=== PATIENT | female | born 1965 | race American Indian/Alaskan Native ===

== ENCOUNTER 2018-05-17 10:14 | Observation (INO) | payer MEDICAID ==
[2018-05-17 10:26] VITALS: BMI 57.6
[2018-05-17 11:18] LABS: BASO # 0.01 K/mm3 (0.0-2.0); BASO % 0.3 % (0.0-3.0); EOS # 0.1 (0.0-0.7); EOS % 1.3 % (1.5-5.0); GRAN # 2.05 (1.4-6.5); GRAN % 52.9 % (50.0-68.0); HEMOGLOBIN 14.7 g/dL (12.0-16.0); LYMPH # 1.4 (1.2-3.4); LYMPH % 36.2 % (22.0-35.0); MEAN CELL VOLUME 89.7 fl (80.0-105.0); MEAN CORPUSCULAR HEMOGLOBIN 29.2 pg (25.0-35.0); MEAN CORPUSCULAR HGB CONC 32.6 g/dl (31.0-37.0); MEAN PLATELET VOLUME 11.5 fl (7.0-11.0); MONO # 0.4 (0.1-0.6); MONO % 9.3 % (1.0-6.0); RBC 5.03 10^6/uL (3.5-6.1); RED CELL DISTRIBUTION WIDTH 13.8 % (11.5-14.5); WHITE BLOOD COUNT 3.9 10^3/uL (4.5-11.0)
[2018-05-17 11:45] LABS: URINE APPEARANCE CLEAR (CLEAR); URINE BILIRUBIN NEGATIVE (NEGATIVE); URINE BLOOD TRACE-INTACT (NEGATIVE); URINE COLOR LIGHT YELLOW (YELLOW); URINE GLUCOSE (UA) NEGATIVE (NEGATIVE); URINE LEUKOCYTE ESTERASE TRACE Leu/uL (NEGATIVE); URINE PROTEIN NEGATIVE mg/dL (<30 mg/dL); URINE UROBILINOGEN 0.2 E.U./dL (<1 E.U./dL)
[2018-05-17 11:52] LABS: URINE BACTERIA FEW (NEG); URINE RBC 0 - 2 /hpf (0-2); URINE WBC 0 - 2 /hpf (0-6)
--- NOTE | 2018-05-17 12:03 | ED PDOC ---
Arrival/HPI - General Chief Complaint: Chest Pain Time Seen by Provider: 05/17/18 10:27 Historian: Patient - History of Present Illness Narrative History of Present Illness (Text): 05/17/18 12:01 53-year-old female with a history of hypertension and morbid obesity presents today with a 2 day history of left-sided chest pain that is intermittent. Patient describes the chest pain as a sharp sensation that radiates to the left lateral aspect of the chest that now seems more like a pressure sensation. Patient states she's had some intermittent shortness of breath mostly when she is sitting up and leaning forward. Patient denies any shortness of breath at present time. Patient denies nausea vomiting diarrhea or constipation. Patient states she's been intermittently dizzy as well. She denies headaches. Patient denies any recent trauma or injury. Patient also is complaining of pain in the bilateral lower extremities. Past Medical History - Provider Review Nursing Documentation Reviewed: Yes - Travel History Have you recently traveled outside [place] w/in the past 3 mons?: No - Infectious Disease Hx of Infectious Diseases: None - Tetanus Immunization Tetanus Immunization: Unknown - Cardiac Hx Hypertension: Yes Hx Pacemaker: No - Pulmonary Hx Sleep Apnea: Yes - Neurological Hx Paralysis: No - HEENT Hx HEENT Disorder: Yes Hx Blind: Yes Hx Cataracts: Yes (Hx of bilateral lens implant: Right 08/2102 and Left 08/2013.) Hx Glaucoma: Yes - Renal Hx Renal Disorder: No - Endocrine/Metabolic Hx Endocrine Disorders: No - Hematological/Oncological Hx Blood Transfusions: No Hx Blood Transfusion Reaction: No - Integumentary Hx Dermatological Disorder: No - Musculoskeletal/Rheumatological Hx Musculoskeletal Disorders: Yes - Gastrointestinal Hx Gastrointestinal Disorders: No - Genitourinary/Gynecological Hx Genitourinary Disorders: No - Psychiatric Hx Emotional Abuse: No Hx Physical Abuse: No Hx Substance Use: No - Anesthesia Hx Anesthesia Reactions: No Hx Malignant Hyperthermia: No - Suicidal Assessment Feels Threatened In Home Enviroment: No Family/Social History - Physician Review Nursing Documentation Reviewed: Yes Family/Social History: Unknown Family HX Smoking Status: Never Smoked Hx Alcohol Use: No Hx Substance Use: No Hx Substance Use Treatment: No Allergies/Home Meds Allergies/Adverse Reactions: Allergies No Known Allergies Allergy (Verified 11/12/13 17:11) Home Medications: Home Meds Medication Instructions Recorded Confirmed Olmesartan/Hydrochlorothiazide 1 tab PO DAILY 11/12/13 03/14/16 [Benicar Hct 12.5 mg-20 mg] Combigan 1 drop EACHEYE [facility] 03/10/16 03/14/16 Ergocalciferol (Vitamin D2) 2,000 iu PO QOTHERDAY 03/10/16 03/14/16 [Vitamin D2] Latanoprost 1 drop EACHEYE 03/10/16 03/14/16 PrednisoLONE 1% [Prednisolone 1 drop EACHEYE [facility] 03/10/16 03/14/16 Acetate 5 Ml] amLODIPine [Norvasc] 10 mg PO DAILY 03/10/16 03/14/16 Review of Systems - Review of Systems Constitutional: absent: Fatigue, Fevers ENT: Sinus Congestion Respiratory: SOB (intermittent, not a present time). absent: Cough Cardiovascular: Chest Pain. absent: Palpitations, Syncope Gastrointestinal: absent: Abdominal Pain, Nausea, Vomiting Genitourinary Female: absent: Dysuria, Frequency, Hematuria Musculoskeletal: absent: Arthralgias, Back Pain, Neck Pain Skin: absent: Rash, Pruritis Neurological: Dizziness. absent: Headache Psychiatric: absent: Anxiety, Depression Physical Exam Vital Signs Reviewed: Yes Vital Signs Temp Pulse Resp BP Pulse Ox 05/17/18 11:49 64 18 130/74 100 05/17/18 10:14 98.5 F 65 18 142/71 99 Temperature: Afebrile Blood Pressure: Normal Pulse: Regular Respiratory Rate: Normal Appearance: Positive for: Well-Appearing, Non-Toxic, Comfortable Pain Distress: None Mental Status: Positive for: Alert and Oriented X 3 - Systems Exam Head: Present: Atraumatic Mouth: Present: Moist Mucous Membranes Neck: Present: Normal Range of Motion Respiratory/Chest: Present: Clear to Auscultation, Good Air Exchange. No: Respiratory Distress, Accessory Muscle Use, Wheezes, Retracting, Rhonchi, Tachypneic Cardiovascular: Present: Regular Rate and Rhythm, Normal S1, S2. No: Murmurs, Tachycardic Abdomen: No: Tenderness, Distention, Rebound, Guarding Back: Present: Normal Inspection Upper Extremity: Present: Normal ROM Lower Extremity: Present: Normal Inspection, Normal ROM. No: Erythema Neurological: Present: GCS=15, Speech Normal Skin: Present: Warm, Dry, Normal Color. No: Rashes Psychiatric: Present: Alert, Oriented x 3 Medical Decision Making ED Course and Treatment: 05/17/18 12:04 pt with chest pain and occasional dizziness x 2 days. vitals stable cbc; wnl cmp; wnl trop: wnl ekg; normal sinus rhythm at 65 bpm normal axis no ST elevations QTC 428 cxr: wnl venous duplex b/l legs; no dvt verbal report from US tech. asa po 40meq potassium PO pt reassessment; pt non toxic well appearing; no distress. stable vitals. case discussed with Dr. Ascencio will Admit observational status to Tele for chest pain r/o acs. impression; chest pain Admit observational status to tele; Dr. Ascencio - Lab Interpretations Lab Results: 05/17/18 11:00 Lab Results 05/17/18 11:40: Urine Color Light yellow, Urine Appearance Clear, Urine pH 7.0, Ur Specific [place] 1.015, Urine Protein Negative, Urine Glucose (UA) Negative, Urine Ketones Negative, Urine Blood Trace-intact H, Urine Nitrate Negative, Urine Bilirubin Negative, Urine Urobilinogen 0.2, Ur Leukocyte Esterase Trace H, Urine RBC 0 - 2, Urine WBC 0 - 2, Ur Epithelial Cells 4 - 5, Urine Bacteria Few 05/17/18 11:00: WBC 3.9 L, RBC 5.03, Hgb 14.7, Hct 45.1, MCV 89.7, MCH 29.2, MCHC 32.6, RDW 13.8, Plt Count 202, MPV 11.5 H, Gran % 52.9, Lymph % (Auto) 36.2 H, [place] % (Auto) 9.3 H, Eos % (Auto) 1.3 L, Baso % (Auto) 0.3, Gran # 2.05, Lymph # (Auto) 1.4, [place] # (Auto) 0.4, Eos # (Auto) 0.1, Baso # (Auto) 0.01 - RAD Interpretation Radiology Orders: 05/17/18 10:55 CHEST PORTABLE [RAD] Stat 05/17/18 11:21 DUPLEX LOWER EXTRM VEIN BILAT [US] Stat Disposition/Present on Arrival - Present on Arrival Any Indicators Present on Arrival: No History of DVT/PE: No History of Uncontrolled Diabetes: No Urinary Catheter: No History of Decub. Ulcer: No History Surgical Site Infection Following: None - Disposition Have Diagnosis and Disposition been Completed?: Yes Diagnosis: Chest pain Disposition: HOSPITALIZED Disposition Time: 13:00 Patient Plan: Observation Condition: FAIR Discharge Instructions (ExitCare): Chest Pain (ED) Referrals: Mya Anderson DO [Primary Care Provider] - Follow up with primary Forms: Leroy Brothers (Irish)
--- NOTE | 2018-05-17 12:38 | RAD ---
Date of service: 05/17/2018 HISTORY: chest pain COMPARISON: 11/12/2013 FINDINGS: LUNGS: No active pulmonary disease. PLEURA: No significant pleural effusion identified, no pneumothorax apparent. CARDIOVASCULAR: No aortic atherosclerotic calcification present. Mild cardiomegaly no pulmonary vascular congestion. OSSEOUS STRUCTURES: No significant abnormalities. VISUALIZED UPPER ABDOMEN: Normal. OTHER FINDINGS: None. IMPRESSION: No active disease.
--- NOTE | 2018-05-17 13:02 | US ---
HISTORY: Leg pain and swelling. Evaluate for DVT PHYSICIAN(S): Pato Lu MD. TECHNIQUE: Duplex sonography and color-flow Doppler with graded compression were used to evaluate the deep venous systems of both lower extremities. FINDINGS: The visualized deep venous systems of both lower extremities are sonographically normal and compressible. Normal wave forms and augmentation are seen. There is no sonographic evidence for deep venous thrombosis in the visualized segments of both lower extremities. IMPRESSION: No sonographic evidence for deep venous thrombosis in the visualized segments of both lower extremities.
[2018-05-17 13:11] LABS: ALB/GLOB RATIO 1.3 (1.1-1.8); ALBUMIN 4.2 g/dL (3.0-4.8); ALT/SGPT 38 U/L (7-56); AST/SGOT 24 U/L (14-36); BLOOD UREA NITROGEN 17 mg/dL (7-21); CALCIUM 9.4 mg/dL (8.4-10.5); GFR NON-AFRICAN AMERICAN 58
[2018-05-17] MEDS ORDERED: Potassium Chloride 20 mEq ER Tab PO STA (13:17)
[2018-05-17 13:22] LABS: TROPONIN I < 0.01 ng/mL
--- NOTE | 2018-05-17 15:24 | CP.PCM.HP ---
<Maggy Olivera - Last Filed: 05/17/18 18:03> History of Present Illness - History of Present Illness History of Present Illness: Resident History & Physical for Hospitalist Service Patient is a 53 yo female with past medical history of hypertension, obstructive sleep apnea, osteoarthritis, glaucoma, morbid obesity presenting with chief complaint of chest pain that began two days prior. She states that she first became diaphoretic, and then started having chest pain located in mid sternum which radiated into left jaw and down her left arm. The pain fluctuates between a sharp and pressure like sensation. She rates the severity 8/10. She denies any alleviating or aggravating factors. She took Janice- [place] without any remission of pain. She also admits to dizziness, which is brought on by positional changes such as sitting or standing up. Patient has followed up with a trade promotion analyst in the past Dr. Coates ([place], ). However she states that she has not followed up with him in several years. She denies associated fevers, chills, fatigue, cough, abdominal pain, nausea, vomiting, diarrhea, constipation. Currently in the ED the patient rates the pain as a 6/10. PMH: Hypertension, obstructive sleep apnea, osteoarthritis, glaucoma, morbid obesity PSH: Corneal transplant Social Hx: Denies alcohol, drug, tobacco use. Lives with her teenage son. She is legally blind and has home health aide Allergies: NKDA FHx: Mother (HTN), Father (HTN) Home meds: Amlodipine 5 mg daily, Aspirin 81 mg daily, Trazodone 150 mg nighttime, Ibuprofen 800 mg q8hrs prn, Valsartan HCTZ 80-12.5 mg daily, Oyster shell 500 Vitamin D 200 BID. Brimonidine 0.2% ophthalmic solution, Latanoprost .005% ophthalmic solution, Prednisolone 1% ophthalmic solution, Dorzolamide Timolol ophthalmic drops. PMD: Dr. Anderson 12 point ROS was negative except as stated in HPI Present on Admission - Present on Admission Any Indicators Present on Admission: No Review of Systems - Review of Systems All systems: reviewed and no additional remarkable complaints except (as stated in HPI) Past Patient History - Infectious Disease Hx of Infectious Diseases: None - Tetanus Immunizations Tetanus Immunization: Unknown - Past Social History Smoking Status: Never Smoked - CARDIAC Hx Hypertension: Yes Hx Pacemaker: No - PULMONARY Hx Sleep Apnea: Yes - NEUROLOGICAL Hx Paralysis: No - HEENT Hx HEENT Problems: Yes Hx Blind: Yes Hx Cataracts: Yes (Hx of bilateral lens implant: Right 08/2102 and Left 08/2013.) Hx Glaucoma: Yes - RENAL Hx Chronic Kidney Disease: No - ENDOCRINE/METABOLIC Hx Endocrine Disorders: No - HEMATOLOGICAL/ONCOLOGICAL Hx Blood Transfusions: No Hx Blood Transfusion Reaction: No - INTEGUMENTARY Hx Dermatological Problems: No - MUSCULOSKELETAL/RHEUMATOLOGICAL Hx Musculoskeletal Disorders: Yes - GASTROINTESTINAL Hx Gastrointestinal Disorders: No - GENITOURINARY/GYNECOLOGICAL Hx Genitourinary Disorders: No - PSYCHIATRIC Hx Emotional Abuse: No Hx Physical Abuse: No Hx Substance Use: No - SURGICAL HISTORY Hx Surgeries: Yes - ANESTHESIA Hx Anesthesia Reactions: No Hx Malignant Hyperthermia: No Meds Allergies/Adverse Reactions: Allergies Allergy/AdvReac Type Severity Reaction Status Date / Time No Known Allergies Allergy Verified 05/17/18 18:10 Physical Exam - Constitutional Appears: Non-toxic, No Acute Distress - Head Exam Head Exam: ATRAUMATIC, NORMOCEPHALIC - Eye Exam Eye Exam: absent: Conjunctival injection, Periorbital swelling, Periorbital tenderness, Scleral icterus Additional comments: legally blind unable to assess EOM - ENT Exam ENT Exam: Mucous Membranes Moist, Normal External Ear Exam - Neck Exam Neck exam: Positive for: Full Rom. Negative for: Lymphadenopathy, Tenderness, Thyromegaly - Respiratory Exam Respiratory Exam: Chest Wall Tenderness, Clear to Auscultation Bilateral, NORMAL BREATHING PATTERN. absent: Accessory Muscle Use, Decreased Breath Sounds, Rales, Rhonchi, Wheezes, Respiratory Distress, Stridor - Cardiovascular Exam Cardiovascular Exam: RRR, +S1, +S2. absent: JVD, Systolic Murmur - GI/Abdominal Exam GI & Abdominal Exam: Normal Bowel Sounds. absent: Firm, Guarding, Organomegaly, Rebound, Rigid, Tenderness - Extremities Exam Extremities exam: Positive for: normal capillary refill, pedal edema, pedal pulses present Additional comments: +2/4 pitting edema LLE +1/4 pitting edema RLE - Back Exam Back exam: NORMAL INSPECTION. absent: rash noted - Neurological Exam Neurological exam: Alert, Oriented x3 Additional comments: CN II-XII intact except for II/III/IV/ which could not be assessed - Psychiatric Exam Psychiatric exam: Normal Affect, Normal Mood - Skin Skin Exam: Dry, Intact, Normal Color, Warm Results - Vital Signs Recent Vital Signs: Last Vital Signs Temp 98.2 F 05/17/18 15:08 Pulse 69 05/17/18 15:08 Resp 19 05/17/18 15:08 BP 133/74 05/17/18 15:08 Pulse Ox 97 05/17/18 15:08 - Labs Result Diagrams: 05/17/18 11:00 05/17/18 11:00 Labs: Laboratory Results - last 24 hr 05/17/18 05/17/18 05/17/18 11:00 11:00 11:40 WBC 3.9 L RBC 5.03 Hgb 14.7 Hct 45.1 MCV 89.7 MCH 29.2 MCHC 32.6 RDW 13.8 Plt Count 202 MPV 11.5 H Gran % 52.9 Lymph % (Auto) 36.2 H [place] % (Auto) 9.3 H Eos % (Auto) 1.3 L Baso % (Auto) 0.3 Gran # 2.05 Lymph # (Auto) 1.4 [place] # (Auto) 0.4 Eos # (Auto) 0.1 Baso # (Auto) 0.01 Sodium 140 Potassium 3.3 L Chloride 102 Carbon Dioxide 33 Anion Gap 9 L BUN 17 Creatinine 1.0 Est GFR ( Amer) > 60 Est GFR (Non-Af Amer) 58 Random Glucose 84 Calcium 9.4 Magnesium 2.0 Total Bilirubin 0.5 AST 24 ALT 38 Alkaline Phosphatase 111 Lactate Dehydrogenase 681 Total Creatine Kinase 172 Troponin I < 0.01 Total Protein 7.3 Albumin 4.2 Globulin 3.1 Albumin/Globulin Ratio 1.3 Urine Color Light yellow Urine Appearance Clear Urine pH 7.0 Ur Specific [place] 1.015 Urine Protein Negative Urine Glucose (UA) Negative Urine Ketones Negative Urine Blood Trace-intact H Urine Nitrate Negative Urine Bilirubin Negative Urine Urobilinogen 0.2 Ur Leukocyte Esterase Trace H Urine RBC 0 - 2 Urine WBC 0 - 2 Ur Epithelial Cells 4 - 5 Urine Bacteria Few Assessment & Plan - Assessment and Plan (Free Text) Assessment: Patient is a 53 yo female with past medical history of hypertension, obstructive sleep apnea, osteoarthritis, and glaucoma admitted for workup and management of chest pain. Plan: Chest pain - Troponins neg x1 - Troponins Q6H x2, CPK - EKG shows normal sinus rhythm with no ST elevations or depressions - CXR shows mild cardiomegaly, no active disease - Aspirin 325 mg given in ED - Lipid panel shows cholesterol 208 (H), LDL 130 (H), HDL 53 - Cardiology consulted. Appreciate recs. - EKG Q6H x2 - ECHO - Thyroid panel, Hgba1c - PT eval Dizziness - Followup orthostatics - Fall precautions Hypertension - Continue home amlodipine 5 mg PO daily, losartan 50 mg PO daily Obstructive sleep apnea - Continue cpap at night Hypokalemia - Monitor and replete GI/DVT PPX - Protonix 40 mg PO daily - Heparin 5000 units SC Q8H Case discussed with attending Dr. Luisa Olivera PGY-1 - Date & Time Date: 05/17/18 Time: 15:00 <Ava Moran - Last Filed: 05/18/18 08:10> Results - Vital Signs Recent Vital Signs: Last Vital Signs Temp 97.9 F 05/18/18 06:00 Pulse 65 05/18/18 06:00 Resp 19 05/18/18 06:00 BP 124/72 05/18/18 06:00 Pulse Ox 98 05/18/18 06:00 - Labs Result Diagrams: 05/17/18 11:00 05/17/18 11:00 Labs: Laboratory Results - last 24 hr 05/17/18 05/17/18 05/17/18 11:00 11:00 11:40 WBC 3.9 L RBC 5.03 Hgb 14.7 Hct 45.1 MCV 89.7 MCH 29.2 MCHC 32.6 RDW 13.8 Plt Count 202 MPV 11.5 H Gran % 52.9 Lymph % (Auto) 36.2 H [place] % (Auto) 9.3 H Eos % (Auto) 1.3 L Baso % (Auto) 0.3 Gran # 2.05 Lymph # (Auto) 1.4 [place] # (Auto) 0.4 Eos # (Auto) 0.1 Baso # (Auto) 0.01 Sodium 140 Potassium 3.3 L Chloride 102 Carbon Dioxide 33 Anion Gap 9 L BUN 17 Creatinine 1.0 Est GFR ( Amer) > 60 Est GFR (Non-Af Amer) 58 Random Glucose 84 Calcium 9.4 Phosphorus Magnesium 2.0 Total Bilirubin 0.5 AST 24 ALT 38 Alkaline Phosphatase 111 Lactate Dehydrogenase 681 Total Creatine Kinase 172 Troponin I < 0.01 Total Protein 7.3 Albumin 4.2 Globulin 3.1 Albumin/Globulin Ratio 1.3 Triglycerides Cholesterol LDL Cholesterol Direct HDL Cholesterol TSH 3rd Generation Urine Color Light yellow Urine Appearance Clear Urine pH 7.0 Ur Specific [place] 1.015 Urine Protein Negative Urine Glucose (UA) Negative Urine Ketones Negative Urine Blood Trace-intact H Urine Nitrate Negative Urine Bilirubin Negative Urine Urobilinogen 0.2 Ur Leukocyte Esterase Trace H Urine RBC 0 - 2 Urine WBC 0 - 2 Ur Epithelial Cells 4 - 5 Urine Bacteria Few 05/17/18 05/17/18 05/17/18 16:53 16:53 16:53 WBC RBC Hgb Hct MCV MCH MCHC RDW Plt Count MPV Gran % Lymph % (Auto) [place] % (Auto) Eos % (Auto) Baso % (Auto) Gran # Lymph # (Auto) [place] # (Auto) Eos # (Auto) Baso # (Auto) Sodium Potassium Chloride Carbon Dioxide Anion Gap BUN Creatinine Est GFR ( Amer) Est GFR (Non-Af Amer) Random Glucose Calcium Phosphorus 2.9 Magnesium 2.1 Total Bilirubin AST ALT Alkaline Phosphatase Lactate Dehydrogenase Total Creatine Kinase 160 Troponin I < 0.01 Total Protein Albumin Globulin Albumin/Globulin Ratio Triglycerides 93 Cholesterol 208 H LDL Cholesterol Direct 130 H HDL Cholesterol 53 TSH 3rd Generation 0.87 Urine Color Urine Appearance Urine pH Ur Specific [place] Urine Protein Urine Glucose (UA) Urine Ketones Urine Blood Urine Nitrate Urine Bilirubin Urine Urobilinogen Ur Leukocyte Esterase Urine RBC Urine WBC Ur Epithelial Cells Urine Bacteria 05/18/18 02:20 WBC RBC Hgb Hct MCV MCH MCHC RDW Plt Count MPV Gran % Lymph % (Auto) [place] % (Auto) Eos % (Auto) Baso % (Auto) Gran # Lymph # (Auto) [place] # (Auto) Eos # (Auto) Baso # (Auto) Sodium Potassium Chloride Carbon Dioxide Anion Gap BUN Creatinine Est GFR ( Amer) Est GFR (Non-Af Amer) Random Glucose Calcium Phosphorus Magnesium Total Bilirubin AST ALT Alkaline Phosphatase Lactate Dehydrogenase Total Creatine Kinase Troponin I < 0.01 Total Protein Albumin Globulin Albumin/Globulin Ratio Triglycerides Cholesterol LDL Cholesterol Direct HDL Cholesterol TSH 3rd Generation Urine Color Urine Appearance Urine pH Ur Specific [place] Urine Protein Urine Glucose (UA) Urine Ketones Urine Blood Urine Nitrate Urine Bilirubin Urine Urobilinogen Ur Leukocyte Esterase Urine RBC Urine WBC Ur Epithelial Cells Urine Bacteria Attending/Attestation - Attestation I have personally seen and examined this patient.: Yes I have fully participated in the care of the patient.: Yes I have reviewed all pertinent clinical information: Yes Notes (Text): 05/18/18 08:06 Medical record note made by the resident after discussion with my direction and input after the patient was personally seen and examined by me. I have reviewed the chart and agree that the record accurately reflects by personal performance of the history, physical exam, data review, and medical decision-making, in the course for the patient. I have also personally directed the plan of care. 53 yo female with PMH of hypertension, obstructive sleep apnea, osteoarthritis, glaucoma, legally blind, is admitted with chest pain and dizz iness. Patient has chest wall tenderness. EKG is negative for ischemic changes.However due to risk factor, we will monitor patient in telemetry.We will get serial troponin.We will also get cardiology consult. Dizziness is with change of position especially with standing, likely due to orthostatic hypotension.We will get orthostatic vitals and will discontinue HCTZ. Management plan was discussed in detail with patient. Education was provided.
--- NOTE | 2018-05-17 18:43 | CARD ---
APPROVED REPORT Date of service: 05/17/2018 EKG Measurement Heart [id number] <Conclusion> Normal sinus rhythm Normal ECG
[2018-05-17] MEDS ORDERED: Pneumococcal 23-Valent Vaccine IM ONE (21:30)
[2018-05-17] MEDS ORDERED: Influenza Vaccine 60 mcg/0.5 mL SYR (4YR UP) IM ONE (21:30)
[2018-05-17] MEDS ORDERED: PrednisoLONE 1% Opht Susp(5 ml) OU SCH (22:00)
[2018-05-17] MEDS ORDERED: Latanoprost 2.5 ml Opht Soln OU SCH (22:00)
[2018-05-17] MEDS ORDERED: COMBIGAN EACHEYE SCH (22:00)
[2018-05-18] MEDS ORDERED: Pantoprazole 40 mg EC Tab PO SCH (06:00)
[2018-05-18 06:56] VITALS: RESP 19; O2SAT 98
[2018-05-18 08:16] LABS: BASO # 0.01 K/mm3 (0.0-2.0); BASO % 0.3 % (0.0-3.0); EOS # 0.1 (0.0-0.7); EOS % 1.7 % (1.5-5.0); GRAN # 1.62 (1.4-6.5); GRAN % 44.8 % (50.0-68.0); LYMPH # 1.5 (1.2-3.4); LYMPH % 41.8 % (22.0-35.0); MEAN CELL VOLUME 89.1 fl (80.0-105.0); MEAN CORPUSCULAR HEMOGLOBIN 28.9 pg (25.0-35.0); MEAN CORPUSCULAR HGB CONC 32.4 g/dl (31.0-37.0); MEAN PLATELET VOLUME 11.2 fl (7.0-11.0); MONO # 0.4 (0.1-0.6); MONO % 11.4 % (1.0-6.0); RBC 4.4 10^6/uL (3.5-6.1); RED CELL DISTRIBUTION WIDTH 13.8 % (11.5-14.5); WHITE BLOOD COUNT 3.6 10^3/uL (4.5-11.0)
[2018-05-18 08:17] LABS: HEMOGLOBIN 12.7 g/dL (12.0-16.0)
[2018-05-18 08:34] LABS: ALB/GLOB RATIO 1.2 (1.1-1.8); ALBUMIN 3.7 g/dL (3.0-4.8); ALT/SGPT 36 U/L (7-56); AST/SGOT 25 U/L (14-36); BLOOD UREA NITROGEN 18 mg/dL (7-21); CALCIUM 8.8 mg/dL (8.4-10.5); GFR NON-AFRICAN AMERICAN > 60
[2018-05-18] MEDS ORDERED: Potassium Chloride 40 mEq/30 ml LIQ UD PO STA ×2 (09:10→14:01)
[2018-05-18] MEDS ORDERED: Latanoprost 2.5 ml Opht Soln OD SCH ×2 (09:12→22:00)
[2018-05-18] MEDS ORDERED: Dorzolamide 2% Opht Sol 10ml OU SCH ×2 (10:00)
[2018-05-18] MEDS ORDERED: COMBIGAN EACHEYE SCH ×2 (10:00)
[2018-05-18] MEDS ORDERED: PrednisoLONE 1% Opht Susp(5 ml) OU SCH ×2 (10:00)
[2018-05-18] MEDS ORDERED: Calcium-Vit D 250 mg-125 Units Tab UD PO SCH (10:00)
--- NOTE | 2018-05-18 12:08 | CON ---
DATE: 05/18/2018 INDICATION: Chest pain. HISTORY OF PRESENT ILLNESS: This is a 53-year-old obese woman, admitted with left-sided chest pain, sometimes radiating into her jaw and left arm. It was fairly severe, it occurred on and off, and she came to the emergency room yesterday. She subsequently has had no evidence of myocardial infarction by EKG or enzymes. Her chest pain has resolved. This morning, she is resting comfortably in bed. There was no orthopnea, PND, syncope, presyncope, lightheadedness, vertigo, palpitation, edema, fever, chills, cough, sputum production, hemoptysis, abdominal pain, nausea, vomiting, diarrhea, constipation, or melena. She did note intermittent dizziness, which is somewhat positional in nature. PAST MEDICAL HISTORY: Her past medical history is notable for morbid obesity. She is blind from glaucoma and other eye disorders. There is a history of hypertension, sleep apnea, osteoarthritis. There is no history of rheumatic fever, myocardial infarction, congestive heart failure, arrhythmia, diabetes, stroke, TIA, or gout. She had a negative nuclear stress test here in 2013. MEDICATIONS: Medications at the time of admission include amlodipine, aspirin, trazodone, Motrin, valsartan HCT, oyster shell, vitamin D, and several eye medications. ALLERGIES: THERE ARE NO MEDICATION ALLERGIES. SOCIAL HISTORY: She lives at home with her son and a home health aide. She is ambulatory, but limited. She does not smoke cigarettes. She does not drink alcohol. FAMILY HISTORY: Family history is notable for hypertension. REVIEW OF SYSTEMS: Ten-point review of systems is otherwise unremarkable except as noted above. PHYSICAL EXAMINATION: GENERAL: She is a well-developed woman, lying in bed, on telemetry, in no acute distress. VITAL SIGNS: Vital signs are notable for sinus rhythm. She is afebrile. Blood pressure 124/72, pulse 65, respirations 18, O2 sat 98% to 100% on room air. HEENT: Exam reveals no neck vein distention, thyromegaly, or carotid bruit. Mucous membranes are moist. Conjunctivae pink. NECK: Supple. LUNGS: Lung [place] are clear. HEART: Examination of the heart revealed distant heart sounds. Normal S1, S2. ABDOMEN: Obese, but benign. No mass, organomegaly, tenderness, rebound, or guarding. No CVA tenderness. No palpable abdominal aortic aneurysm. EXTREMITIES: Extremity exam revealed no cyanosis, clubbing, or edema. NEUROLOGIC: Neurologically, awake, alert, and oriented. PSYCHIATRIC: Normal as to mood and affect. SKIN: Warm and dry. No rash or cellulitis. LABORATORY AND IMAGING DATA: EKG demonstrated regular sinus rhythm with a leftward axis, nonspecific ST wave changes. No acute changes on serial EKGs. A chest x-ray revealed a portable study. There was no active disease reported. Lower extremity ultrasound revealed no evidence of DVT. White count 3900, repeat 3600, hemoglobin 12.7, hematocrit 39.2, and platelet count normal. Electrolytes notable for potassium of 3.3, BUN and creatinine are normal. Blood sugar 84, calcium 9.4, magnesium normal. LFTs normal. CK is negative x2. Troponins negative x3. Total cholesterol 208, LDL 130, triglycerides 93, and HDL 53. TSH normal. Urinalysis is noted. IMPRESSION: Nivia Novak is a 53-year-old obese, hypertensive woman, admitted with chest pain, but no evidence of myocardial infarction. There is no evidence of arrhythmia while on telemetry. She had a negative nuclear stress test in 2013. PLAN: At this time, she is undergoing evaluation. I will order an echocardiogram and a nuclear stress test. She is getting aspirin, subcutaneous heparin, Protonix, eye drops, Norvasc, potassium replacement, flu vaccine, and losartan. She can be out of bed. If there is no further chest pain, the stress test can be on an outpatient basis. If chest pain recurs, she should stay for the weekend and have the stress test Monday morning. Postural signs have been ordered. She can be out of bed to a chair. I will follow along with you. I will make additional recommendations based on her clinical course. Waqar Roth MD MTDD
[2018-05-18 12:42] VITALS: BP 131/70; TEMP 98.1
--- NOTE | 2018-05-18 14:29 | CP.PCM.DIS ---
<Rolando Michel - Last Filed: 05/18/18 14:55> Provider - Provider Date of Admission: 05/17/18 13:50 Attending physician: Ava Moran MD Primary care physician: Mya Anderson DO Consults: 05/17/18 15:18 Physician Consult Routine Comment: Consulting Provider: Waqar Roth Consulting Physician: Waqar Roth Reason for Consult: chest pain 05/17/18 21:30 Case Management Referral Routine Comment: DISCHARGE PLANNING WITH ASSISTANCE AT HOME Physician Instructions: Reason For Exam: EVALUATION-LIVES ALONE,BLIND Reason for Referral: Outside Sales Advertising Executive Eval Inpatient DESK EDITOR Core Measures Referral Routine Comment: Physician Instructions: Reason For Exam: EVALUATION Transition In Care/Readmission Reduction Routine Comment: Physician Instructions: Reason For Exam: EVALUATION Time Spent in preparation of Discharge (in minutes): 40 Hospital Course - Lab Results Lab Results: Most Recent Lab Values WBC 3.6 10^3/uL (4.5-11.0) L 05/18/18 08:00 RBC 4.40 10^6/uL (3.5-6.1) 05/18/18 08:00 Hgb 12.7 g/dL (12.0-16.0) D 05/18/18 08:00 Hct 39.2 % (36.0-48.0) 05/18/18 08:00 MCV 89.1 fl (80.0-105.0) 05/18/18 08:00 MCH 28.9 pg (25.0-35.0) 05/18/18 08:00 MCHC 32.4 g/dl (31.0-37.0) 05/18/18 08:00 RDW 13.8 % (11.5-14.5) 05/18/18 08:00 Plt Count 182 10^3/uL (120.0-450.0) 05/18/18 08:00 MPV 11.2 fl (7.0-11.0) H 05/18/18 08:00 Gran % 44.8 % (50.0-68.0) L 05/18/18 08:00 Lymph % (Auto) 41.8 % (22.0-35.0) H 05/18/18 08:00 Burnet % (Auto) 11.4 % (1.0-6.0) H 05/18/18 08:00 Eos % (Auto) 1.7 % (1.5-5.0) 05/18/18 08:00 Baso % (Auto) 0.3 % (0.0-3.0) 05/18/18 08:00 Gran # 1.62 (1.4-6.5) 05/18/18 08:00 Lymph # (Auto) 1.5 (1.2-3.4) 05/18/18 08:00 Burnet # (Auto) 0.4 (0.1-0.6) 05/18/18 08:00 Eos # (Auto) 0.1 (0.0-0.7) 05/18/18 08:00 Baso # (Auto) 0.01 K/mm3 (0.0-2.0) 05/18/18 08:00 Sodium 138 mmol/L (132-148) 05/18/18 08:00 Potassium 3.3 mmol/L (3.6-5.0) L 05/18/18 08:00 Chloride 103 mmol/L (98-107) 05/18/18 08:00 Carbon Dioxide 32 mmol/L (21-33) 05/18/18 08:00 Anion Gap 7 (10-20) L 05/18/18 08:00 BUN 18 mg/dL (7-21) 05/18/18 08:00 Creatinine 0.9 mg/dl (0.7-1.2) 05/18/18 08:00 Est GFR ( Amer) > 60 05/18/18 08:00 Est GFR (Non-Af Amer) > 60 05/18/18 08:00 Random Glucose 97 mg/dL (70-110) 05/18/18 08:00 Hemoglobin A1c 5.7 % (4.2-6.5) 05/17/18 16:53 Calcium 8.8 mg/dL (8.4-10.5) 05/18/18 08:00 Phosphorus 2.9 mg/dL (2.5-4.5) 05/17/18 16:53 Magnesium 2.1 mg/dL (1.7-2.2) 05/17/18 16:53 Total Bilirubin 0.5 mg/dL (0.2-1.3) 05/18/18 08:00 AST 25 U/L (14-36) 05/18/18 08:00 ALT 36 U/L (7-56) 05/18/18 08:00 Alkaline Phosphatase 100 U/L (38-126) 05/18/18 08:00 Lactate Dehydrogenase 681 U/L (333-699) 05/17/18 11:00 Total Creatine Kinase 160 U/L (35-230) 05/17/18 16:53 Troponin I < 0.01 ng/mL 05/18/18 02:20 Total Protein 6.7 g/dL (5.8-8.3) 05/18/18 08:00 Albumin 3.7 g/dL (3.0-4.8) 05/18/18 08:00 Globulin 3.0 gm/dL 05/18/18 08:00 Albumin/Globulin Ratio 1.2 (1.1-1.8) 05/18/18 08:00 Triglycerides 93 mg/dL (35-160) 05/17/18 16:53 Cholesterol 208 mg/dL (130-200) H 05/17/18 16:53 LDL Cholesterol Direct 130 mg/dL (0-129) H 05/17/18 16:53 HDL Cholesterol 53 mg/dL (29-60) 05/17/18 16:53 TSH 3rd Generation 0.87 mIU/mL (0.46-4.68) 05/17/18 16:53 Urine Color Light yellow (YELLOW) 05/17/18 11:40 Urine Appearance Clear (CLEAR) 05/17/18 11:40 Urine pH 7.0 (4.7-8.0) 05/17/18 11:40 Ur Specific Ramsey 1.015 (1.005-1.035) 05/17/18 11:40 Urine Protein Negative mg/dL (<30 mg/dL) 05/17/18 11:40 Urine Glucose (UA) Negative mg/dL (NEGATIVE) 05/17/18 11:40 Urine Ketones Negative mg/dL (NEGATIVE) 05/17/18 11:40 Urine Blood Trace-intact (NEGATIVE) H 05/17/18 11:40 Urine Nitrate Negative (NEGATIVE) 05/17/18 11:40 Urine Bilirubin Negative (NEGATIVE) 05/17/18 11:40 Urine Urobilinogen 0.2 E.U./dL (<1 E.U./dL) 05/17/18 11:40 Ur Leukocyte Esterase Trace Carmen/uL (NEGATIVE) H 05/17/18 11:40 Urine RBC 0 - 2 /hpf (0-2) 05/17/18 11:40 Urine WBC 0 - 2 /hpf (0-6) 05/17/18 11:40 Ur Epithelial Cells 4 - 5 /hpf (0-5) 05/17/18 11:40 Urine Bacteria Few (NEG) 05/17/18 11:40 - Hospital Course Hospital Course: 53 yo female with past medical history of hypertension, obstructive sleep apnea, osteoarthritis, glaucoma, morbid obesity presenting with chief complaint of chest pain x 2 days. In the ED basic labwork, CXR and EKG was performed. Patient was admitted for chest pain r/o ACS. Serial troponin was neg. Today the patients chest pain has resolved. Echo showed EF ~ 60% with mild LVH. Cardiology consulted and recommended outpatient stress test. Patient states that she feels much better and understands/agrees to follow up with outpatient stress test and her PMD. Dx: Chest pain r/o ACS Discharge Exam - Head Exam Head Exam: ATRAUMATIC, NORMOCEPHALIC - Eye Exam Eye Exam: EOMI - Respiratory Exam Respiratory Exam: Clear to PA & Lateral. absent: Rales, Rhonchi - Cardiovascular Exam Cardiovascular Exam: REGULAR RHYTHM, RRR, +S1, +S2 - GI/Abdominal Exam GI & Abdominal Exam: Normal Bowel Sounds, Soft. absent: Distended, Tenderness - Neurological Exam Neurological exam: Alert, Oriented x3 - Psychiatric Exam Psychiatric exam: Normal Mood - Skin Skin Exam: Dry, Intact, Warm Discharge Plan - Follow Up Plan Condition: IMPROVED Disposition: HOME/ ROUTINE Patient education suggested?: Yes Instructions: Dizziness, Nonvertigo, (DC), Chest Pain (DC) Additional Instructions: Please follow up with cardiology for outpatient stress test with in 1 week. Take your medications as prescribed. Follow up with you PMD with in 3-5 days. If your symptoms recur come back to the ED. Referrals: Waqar Roth MD [Staff Provider] - Mya Anderson DO [Primary Care Provider] - <Ava Moran - Last Filed: 05/19/18 11:39> Provider - Provider Date of Admission: 05/17/18 13:50 Attending physician: Ava Moran MD Primary care physician: Mya Anderson DO Consults: 05/17/18 15:18 Physician Consult Routine Comment: Consulting Provider: Waqar Roth Consulting Physician: Waqar Roth Reason for Consult: chest pain 05/17/18 21:30 Case Management Referral Routine Comment: DISCHARGE PLANNING WITH ASSISTANCE AT HOME Physician Instructions: Reason For Exam: EVALUATION-LIVES ALONE,BLIND Reason for Referral: Outside Sales Advertising Executive Eval Inpatient DESK EDITOR Core Measures Referral Routine Comment: Physician Instructions: Reason For Exam: EVALUATION Transition In Care/Readmission Reduction Routine Comment: Physician Instructions: Reason For Exam: EVALUATION Hospital Course - Lab Results Lab Results: Micro Results 05/17/18 Unknown Urine,Clean Catch Urine Culture - Final No Growth (<1,000 CFU/ML) Most Recent Lab Values WBC 3.6 10^3/uL (4.5-11.0) L 05/18/18 08:00 RBC 4.40 10^6/uL (3.5-6.1) 05/18/18 08:00 Hgb 12.7 g/dL (12.0-16.0) D 05/18/18 08:00 Hct 39.2 % (36.0-48.0) 05/18/18 08:00 MCV 89.1 fl (80.0-105.0) 05/18/18 08:00 MCH 28.9 pg (25.0-35.0) 05/18/18 08:00 MCHC 32.4 g/dl (31.0-37.0) 05/18/18 08:00 RDW 13.8 % (11.5-14.5) 05/18/18 08:00 Plt Count 182 10^3/uL (120.0-450.0) 05/18/18 08:00 MPV 11.2 fl (7.0-11.0) H 05/18/18 08:00 Gran % 44.8 % (50.0-68.0) L 05/18/18 08:00 Lymph % (Auto) 41.8 % (22.0-35.0) H 05/18/18 08:00 Burnet % (Auto) 11.4 % (1.0-6.0) H 05/18/18 08:00 Eos % (Auto) 1.7 % (1.5-5.0) 05/18/18 08:00 Baso % (Auto) 0.3 % (0.0-3.0) 05/18/18 08:00 Gran # 1.62 (1.4-6.5) 05/18/18 08:00 Lymph # (Auto) 1.5 (1.2-3.4) 05/18/18 08:00 Burnet # (Auto) 0.4 (0.1-0.6) 05/18/18 08:00 Eos # (Auto) 0.1 (0.0-0.7) 05/18/18 08:00 Baso # (Auto) 0.01 K/mm3 (0.0-2.0) 05/18/18 08:00 Sodium 138 mmol/L (132-148) 05/18/18 08:00 Potassium 3.3 mmol/L (3.6-5.0) L 05/18/18 08:00 Chloride 103 mmol/L (98-107) 05/18/18 08:00 Carbon Dioxide 32 mmol/L (21-33) 05/18/18 08:00 Anion Gap 7 (10-20) L 05/18/18 08:00 BUN 18 mg/dL (7-21) 05/18/18 08:00 Creatinine 0.9 mg/dl (0.7-1.2) 05/18/18 08:00 Est GFR ( Amer) > 60 05/18/18 08:00 Est GFR (Non-Af Amer) > 60 05/18/18 08:00 Random Glucose 97 mg/dL (70-110) 05/18/18 08:00 Hemoglobin A1c 5.7 % (4.2-6.5) 05/17/18 16:53 Calcium 8.8 mg/dL (8.4-10.5) 05/18/18 08:00 Phosphorus 2.9 mg/dL (2.5-4.5) 05/17/18 16:53 Magnesium 2.1 mg/dL (1.7-2.2) 05/17/18 16:53 Total Bilirubin 0.5 mg/dL (0.2-1.3) 05/18/18 08:00 AST 25 U/L (14-36) 05/18/18 08:00 ALT 36 U/L (7-56) 05/18/18 08:00 Alkaline Phosphatase 100 U/L (38-126) 05/18/18 08:00 Lactate Dehydrogenase 681 U/L (333-699) 05/17/18 11:00 Total Creatine Kinase 160 U/L (35-230) 05/17/18 16:53 Troponin I < 0.01 ng/mL 05/18/18 02:20 Total Protein 6.7 g/dL (5.8-8.3) 05/18/18 08:00 Albumin 3.7 g/dL (3.0-4.8) 05/18/18 08:00 Globulin 3.0 gm/dL 05/18/18 08:00 Albumin/Globulin Ratio 1.2 (1.1-1.8) 05/18/18 08:00 Triglycerides 93 mg/dL (35-160) 05/17/18 16:53 Cholesterol 208 mg/dL (130-200) H 05/17/18 16:53 LDL Cholesterol Direct 130 mg/dL (0-129) H 05/17/18 16:53 HDL Cholesterol 53 mg/dL (29-60) 05/17/18 16:53 TSH 3rd Generation 0.87 mIU/mL (0.46-4.68) 05/17/18 16:53 Urine Color Light yellow (YELLOW) 05/17/18 11:40 Urine Appearance Clear (CLEAR) 05/17/18 11:40 Urine pH 7.0 (4.7-8.0) 05/17/18 11:40 Ur Specific Ramsey 1.015 (1.005-1.035) 05/17/18 11:40 Urine Protein Negative mg/dL (<30 mg/dL) 05/17/18 11:40 Urine Glucose (UA) Negative mg/dL (NEGATIVE) 05/17/18 11:40 Urine Ketones Negative mg/dL (NEGATIVE) 05/17/18 11:40 Urine Blood Trace-intact (NEGATIVE) H 05/17/18 11:40 Urine Nitrate Negative (NEGATIVE) 05/17/18 11:40 Urine Bilirubin Negative (NEGATIVE) 05/17/18 11:40 Urine Urobilinogen 0.2 E.U./dL (<1 E.U./dL) 05/17/18 11:40 Ur Leukocyte Esterase Trace Carmen/uL (NEGATIVE) H 05/17/18 11:40 Urine RBC 0 - 2 /hpf (0-2) 05/17/18 11:40 Urine WBC 0 - 2 /hpf (0-6) 05/17/18 11:40 Ur Epithelial Cells 4 - 5 /hpf (0-5) 05/17/18 11:40 Urine Bacteria Few (NEG) 05/17/18 11:40 Attending/Attestation - Attestation I have personally seen and examined this patient.: Yes I have fully participated in the care of the patient.: Yes I have reviewed all pertinent clinical information, including history, physical exam and plan: Yes Notes (Text): 05/19/18 11:37 Medical record note made by the resident after discussion with my direction and input after the patient was personally seen and examined by me. I have reviewed the chart and agree that the record accurately reflects by personal performance of the history, physical exam, data review, and medical decision-making, in the course for the patient. I have also personally directed the plan of care. 53 yo female with PMH of hypertension, obstructive sleep apnea, osteoarthritis, glaucoma, legally blind, was admitted with chest pain and dizziness. Patient has chest wall tenderness.EKG is negative for ischemic changes.Serial troponins are normal. Echo showed normal systolic function. Patient is pain free, will need out patient stress test. Dizziness is with change of position especially with standing, likely due to orthostatic hypotension.HCTZ is discontinued.Patient dizziness has improved. Patient will be discharged home and will follow up with PCP and cardiology. Management plan was discussed in detail with patient. Education was provided.
[2018-05-18 16:03] VITALS: PULSE 82
[2018-05-18] MEDS ORDERED: Brimonidine 0.15% 50 DROP/5 ML BOTTLE OU SCH ×3 (18:00→22:00)
--- NOTE | 2018-05-18 19:44 | CARD ---
APPROVED REPORT Date of service: 05/18/2018 EKG Measurement Heart [id number] <Conclusion> Sinus bradycardia Otherwise normal ECG
--- NOTE | 2018-05-18 19:49 | CARD ---
APPROVED REPORT Date of service: 05/17/2018 EKG Measurement Heart [id number] <Conclusion> Normal sinus rhythm Moderate voltage criteria for LVH, may be normal variant Borderline ECG
--- NOTE | 2018-05-19 06:14 | CARD ---
APPROVED REPORT Date of service: 05/18/2018 EXAM: Two-dimensional and M-mode echocardiogram with Doppler and color Doppler. INDICATION Chest Pain 2D DIMENSIONS Left Atrium (2D)4.2 (1.6-4.0cm)IVSd1.2 (0.7-1.1cm) LVDd4.9 (3.9-5.9cm)PWd1.3 (0.7-1.1cm) LVDs3.2 (2.5-4.0cm)FS (%) 34.3 % LVEF (%)63.2 (>50%) M-Mode DIMENSIONS Aortic Root2.60 (2.2-3.7cm)Aortic Cusp Exc.1.80 (1.5-2.0cm) Aortic Valve AoV Peak Pehfozib127.0cm/Seema Peak GR.8mmHg Mitral Valve E/A ratio0.0 TDI E/Lateral E'0.0E/Medial E'0.0 Tricuspid Valve TR Peak [id number] Peak Gr.22mmHg [id number] LEFT VENTRICLE The left ventricle is normal size. There is mild concentric left ventricular hypertrophy. The left ventricular function is normal. The left ventricular ejection fraction is within the normal range. There is normal LV segmental wall motion. RIGHT VENTRICLE The right ventricle is normal size. The right ventricular systolic function is normal. ATRIA The left atrium is mildly dilated. The right atrium size is normal. The interatrial septum is intact with no evidence for an atrial septal defect. AORTIC VALVE The aortic valve is normal in structure. No aortic regurgitation is present. There is no aortic valvular stenosis. MITRAL VALVE The mitral valve is normal in structure. There is no mitral valve regurgitation noted. TRICUSPID VALVE The tricuspid valve is normal in structure. There is no tricuspid valve regurgitation noted. PULMONIC VALVE The pulmonary valve is normal in structure. GREAT VESSELS The aortic root is normal in size. The IVC is normal in size and collapses >50% with inspiration. PERICARDIAL EFFUSION There is no pleural effusion. There is no pericardial effusion. <Conclusion> Dilated LA. Normal LV size and systolic function. Mild concentric LVH.
== END 2018-05-18 19:01 | disposition home or self-care (01) ==
LOC: ED 10:14 → ERH 13:50 → 2RNO 15:14
PROVIDERS: ADMIT Internal Medicine; ATTEND Internal Medicine
DX: R07.89 Other chest pain (principal); I10 Essential (primary) hypertension; I95.1 Orthostatic hypotension; E87.6 Hypokalemia; G47.33 Obstructive sleep apnea (adult) (pediatric); H40.9 Unspecified glaucoma; H54.8 Legal blindness, as defined in USA; M19.90 Unspecified osteoarthritis, unspecified site; E66.01 Morbid (severe) obesity due to excess calories; Z68.43 Body mass index [BMI] 50.0-59.9, adult; Z79.82 Long term (current) use of aspirin; Z98.42 Cataract extraction status, left eye; Z98.41 Cataract extraction status, right eye; Z96.1 Presence of intraocular lens; Z94.7 Corneal transplant status
CPT/HCPCS: 36415; 71045; 80053; 80061; 81001; 82550; 83036; 83615; 83735; 84100; 84443; 84484; 85025; 87086; 93005; 93306; 93970; 94660; 96372; 97116; 97161; 99285; G0378; G8978; G8979; G8980; J1644; J3480